=== PATIENT | female | born 1985 | race Caucasian/White ===

== ENCOUNTER 2020-04-08 17:56 | Emergency (ER) | payer SELFPAY ==
[2020-04-08] MEDS ORDERED: LORazepam 2 MG/ML VIAL IV STA ×2 (18:02→18:46)
[2020-04-08] MEDS ORDERED: LORazepam 2 MG/ML VIAL IM STA (18:06)
[2020-04-08] MEDS ORDERED: NS 1,000 ML IV ONE ×2 (18:15→23:45)
[2020-04-08 18:35] LABS: HEMOGLOBIN 11.3 g/dl (12.0-15.5); MEAN CORPUSCULAR HEMOGLOBIN 29.1 pg (27.0-33.0); MEAN CORPUSCULAR HGB CONC 34.2 g/dl (32.0-36.5); MEAN CORPUSCULAR VOLUME 85.1 fl (80.0-96.0); PLATELET COUNT, AUTOMATED 237 10^3/uL (150-450); RED BLOOD COUNT 3.88 10^6/uL (4.00-5.40); WHITE BLOOD COUNT 7.1 10^3/uL (4.0-10.0)
[2020-04-08 19:03] LABS: AMPHETAMINES LEVEL URINE POSITIVE (NEGATIVE); BARBITURATES URINE NEGATIVE (NEGATIVE); BENZODIAZEPINES URINE POSITIVE (NEGATIVE); CANNABINOIDS URINE POSITIVE (NEGATIVE); COCAINE METABOLITE URINE NEGATIVE (NEGATIVE); METHADONE URINE NEGATIVE (NEGATIVE); OPIATES URINE NEGATIVE (NEGATIVE); PHENCYCLIDINE URINE NEGATIVE (NEGATIVE)
[2020-04-08 19:06] LABS: HCG, SERUM QUALITATIVE NEGATIVE (NEGATIVE)
[2020-04-08 19:10] LABS: BLOOD UREA NITROGEN 11 MG/DL (7-18); CARBON DIOXIDE LEVEL 20 MEQ/L (21-32); CHLORIDE LEVEL 105 MEQ/L (98-107); CREATININE FOR GFR 0.64 MG/DL (0.55-1.30); GLOMERULAR FILTRATION RATE > 60.0 (>60); GLUCOSE, FASTING 75 MG/DL (70-100); POTASSIUM SERUM 3.1 MEQ/L (3.5-5.1); SODIUM LEVEL 139 MEQ/L (136-145)
[2020-04-08 19:11] LABS: ACETAMINOPHEN LEVEL < 2.0 UG/ML (10.0-30.0); ALT/SGPT 60 U/L (12-78); BILIRUBIN,DIRECT 0.3 MG/DL (0.0-0.2); BILIRUBIN,TOTAL 0.7 MG/DL (0.2-1.0); CALCIUM LEVEL 8.6 MG/DL (8.5-10.1); ETHYL ALCOHOL (ETHANOL) 0.123 % (0.000-0.010); SALICYLATE LEVEL 4.6 MG/DL (5.0-30.0); THYROID STIMULATING HORMONE 0.899 uIU/ML (0.358-3.740); TOTAL PROTEIN 7.4 GM/DL (6.4-8.2)
[2020-04-08] MEDS ORDERED: MIDAZOLAM INJ 2MG/2ML VIAL (J2250 PER 1MG) IV ONE (20:45)
[2020-04-08] MEDS ORDERED: MIDAZOLAM INJ 2MG/2ML VIAL (J2250 PER 1MG) IV STA (21:15)
[2020-04-08] MEDS ORDERED: MIDAZOLAM 5MG/ML 1ML VIAL (J2250 PER 1MG) IM ONE (22:00)
[2020-04-08] MEDS ORDERED: KETAMINE HCL 200 MG/20 ML VIAL As Ordered ONE (22:56)
[2020-04-08] MEDS ORDERED: KETAMINE HCL 200 MG/20 ML VIAL IV ONE (23:00)
[2020-04-08] MEDS ORDERED: LIDOCAINE 1% MDV 50ML VIAL SC ONE (23:00)
--- NOTE | 2020-04-09 00:27 | REPVR ---
PROCEDURE INFORMATION: Exam: CT Head Without Contrast Exam date and time: 04/08/2020 11:42 PM Age: 34 years old Clinical indication: Other: Agitation; Additional info: Severe agitation TECHNIQUE: Imaging protocol: Computed tomography of the head without contrast. Radiation optimization: All CT scans at this facility use at least one of these dose optimization techniques: automated exposure control; mA and/or kV adjustment per patient size (includes targeted exams where dose is matched to clinical indication); or iterative reconstruction. COMPARISON: No relevant prior studies available. FINDINGS: Brain: Normal. No hemorrhage. Unremarkable white matter. No mass effect. Cerebral ventricles: No ventriculomegaly. Bones/joints: Unremarkable. No acute fracture. Paranasal sinuses: Visualized sinuses are unremarkable. No fluid levels. Mastoid air cells: Visualized mastoid air cells are well aerated. Soft tissues: Unremarkable. IMPRESSION: No acute intracranial abnormality. Electronically signed by: Watson Dickinson On 04/09/2020 00:27:37 AM
[2020-04-09 02:15] VITALS: BP 133/66
--- NOTE | 2020-04-09 20:24 | ECGEPIP ---
[facility] - ED Test Date: 2020-04-08 Pat Name: BEATRICE CLARK Department: Room: - Gender: Female [employer]: JOscar : 1985 Requested By: Enrico Patrick Order Number: [id number] Reading MD: Pinky Murphy Measurements Intervals [place] Rate: 112 P: 61 MD: 151 QRS: 53 QRSD: 93 T: -4 QT: 362 QTc: 496 Interpretive Statements SINUS TACHYCARDIA NONSPECIFIC T-WAVE ABNORMALITY ABNORMAL RHYTHM ECG NO PRIOR Electronically Signed on 04-09-2020 20:23:59 EDT by Pinky Murphy
== END 2020-04-09 05:07 | disposition home or self-care (01) ==
LOC: M ED 17:56
DX: T43.641A Poisoning by ecstasy, accidental (unintentional), initial encounter (principal); R45.6 Violent behavior; R45.1 Restlessness and agitation; R00.0 Tachycardia, unspecified; R94.31 Abnormal electrocardiogram [ECG] [EKG]
CPT/HCPCS: 11760; 51701; 70450; 80048; 80076; 80307; 84443; 84703; 85027; 93005; 96361; 99152; 99285; G0480; J2060; J2250